=== PATIENT | female | born 1925 | race Caucasian/White ===

== ENCOUNTER 2017-05-30 15:49 | Outpatient (CLI) | payer MEDICARE, OTHER ==
--- NOTE | 2017-05-30 18:13 | RAD ---
LUMBAR SPINE 3 VIEWS: Date: 05/30/17 HISTORY: Low back pain. FINDINGS: There are five lumbar-type vertebrae. Prominent rightward convex rotatory scoliotic curvature is adwoa arent on the frontal view. Vertebral body heights are maintained. Disc space narrowing is most prono unced at the L3-4 level where there is minimal degenerative retrolisthesis and at the L4-5 level wh ere there is minimal degenerative spondylolisthesis. No acute fracture or dislocation apparent. Osse ous structures are demineralized. Prominent calcifications present within the arterial structures. IMPRESSION: 1. Severe spondylosis. No evidence of compression fracture. 2. Osteoporosis. 3. Atherosclerosis. POS: [facility]
== END 2017-05-30 15:50 | disposition home or self-care (01) ==
LOC: RAD-FRANK 15:49
PROVIDERS: ATTEND Nurse Practitioner Family
DX: M54.5 Low back pain (principal); M47.816 Spondylosis without myelopathy or radiculopathy, lumbar region; M81.0 Age-related osteoporosis without current pathological fracture; I70.90 Unspecified atherosclerosis
CPT/HCPCS: 72100